=== PATIENT | female | born 1995 | race Caucasian/White ===

== ENCOUNTER 2020-06-17 22:30 | Inpatient (IN) | payer MEDICAID, SELFPAY ==
[2020-06-17 22:00] VITALS: RESP 18; TEMP 36.6
[2020-06-17 22:07] VITALS: TEMP 36.6
[2020-06-17 23:04] VITALS: BP 111/72; PULSE 92
[2020-06-17 23:34] VITALS: BP 118/81; PULSE 93
[2020-06-18] VITALS (51 sets, daily range): BP systolic 97–136; BP diastolic 60–87; PULSE 80–135; RESP 14–20; TEMP 36.3–37.4; O2SAT 98–100; BMI 25.9
[2020-06-18 00:07] LABS: Basophils % 0.1 %; Eosinophils # 0.1 10^3/uL (0.0-0.8); Eosinophils % 0.5 %; Hematocrit 28.4 % (37.0-47.0); Lymphocytes # 1.9 10^3/uL (0.8-4.8); Lymphocytes % 17.7 %; Mean Corpuscular HGB Conc 31.7 g/dL (30.0-36.0); Mean Corpuscular Hemoglobin 28.9 pg (28.0-34.0); Mean Corpuscular Volume 91.3 fL (81-99); Mean Platelet Volume 13.3 fL (7.4-10.4); Monocytes # 1.1 10^3/uL (0.2-0.9); Monocytes % 9.9 %; Neutrophils # 7.52 10^3/uL (1.8-7.7); Neutrophils % 71.2 %; Nucleated Red Blood Cells % 0 %; Platelet Count 152 10^3/cmm (130-400); Red Blood Count 3.11 10^6/uL (4.1-5.3); Red Cell Distribution Width 13.8 % (12.1-15.1); White Blood Count 10.6 10^3/uL (4.0-10.0)
[2020-06-18] MEDS: fentaNYL 50 mcg/mL INJ 2mL IVP ×3 (02:49→07:25)
[2020-06-18] MEDS: ondansetron 2 mg/ML SDV 2 mL 4 MG IVP (03:41)
[2020-06-18] MEDS: dextrose 5%-lactated ringers 1,000 ML 125 ML IV (03:42)
[2020-06-18] MEDS: oxytocin 30 UNIT/500 ML BAG IV (05:08)
[2020-06-18] MEDS: lactated ringers 1,000 ML 999 ML IV (07:21)
--- NOTE | 2020-06-18 08:58 | PM.DELIVERY ---
Delivery Note: Date of delivery: June 18, 2020 Pre-Delivery Course: The patient is a 24-year-old 2 female at 39 weeks estimated gestational age who presented to the hospital with spontaneous rupture of membranes. Her Covid status is unknown. She is GBS negative. Her glucose screen was within normal limits. Delivery: DELIVERY: The patient progressed to 7 cm, and I was contacted at that point. She then quickly progressed to complete and had spontaneous delivery of the infant prior to my arrival to the room. She delivered a female with a weight of 7 pounds 8 ounces with Apgars of 9, 9. The baby was delivered from the [place] position. The cord was then clamped and cut. There was no nuchal cord. There was no meconium. I delivered the placenta and 3 vessel cord were delivered intact shortly after arriving in the room.. The perineum and vaginal vault were carefully examined. A small anterior midline laceration was noted just superior to the urethra. No repair was necessary. Both the mother and the baby were in stable condition. A&P Assessment and plan (1) 39 weeks gestation of : Anticipate routine care. If all goes well she should be discharged tomorrow Status: Acute (2) Spontaneous vaginal delivery: Status: Acute Coding Level of Care Code Acute Technical Instructor Course Developer for Chg Fwd Diagnoses 39 weeks gestation of Z3A.39 Spontaneous vaginal delivery O80
[2020-06-18] MEDS: docusate sodium 100 mg Capsule PO ×2 (12:33→18:07)
[2020-06-18] MEDS: ibuprofen 800 mg tablet PO ×2 (12:33→18:07)
[2020-06-18] MEDS: benzocaine-menthol 78 gm Canister 1 SPRAY TOPICAL (12:34)
[2020-06-18] MEDS: prenatal vitamin Capsule 1 CAP PO (12:34)
[2020-06-18] MEDS: lanolin oint 7 gm 1 APPLIC TOPICAL (12:34)
--- NOTE | 2020-06-18 12:49 | PC.NURSE ---
This nurse received report from Neeta Watts RN. This nurse entered pt room at 0715, pt had grimace on her face and was obviously in pain. Her fluid bolus was almost complete, there was only about 100 mL left in the bag. Pitocin was running at 7miliunits/hr. Anesthesia had not been notified by prior shift that pt was ready for epidural, so this nurse notified Shannon Medina CRNA at 0717 that pt was ready for her epidural. At 0719 a new bag of LR was hung and set to bolus. This nurse performed SVE and pt was 7cm, 75%, and -1 station. This nurse offered pt Fentanyl for pain, pt accepted. At 0725 this nurse pushed 25 mcg of Fentanyl to make pt more comfortable while she waited for anesthesia to arrive. At 0743 pt reported she felt like she had to push . This nurse performed SCE and it was the same as previous exam 7cm, 75%, -1 station. This nurse educated pt to not push and to take deep breaths. This nurse notified Dr. Rosen at 0743 and reported that pt was currently awaiting anesthesia to arrive to place her epidural and pt was 7cm and was feeling like she needed to push. Dr. Rosen reported that he was going to get ready and that he would be leaving his house in 10-15 minutes, but to call sooner if anything changed. At 0751 anesthesia arrived and was at bedside when pt stated, She's coming, I can feel her. This nurse performed SVE and pt was complete and 0 station. This nurse yelled for help and to call Dr. Rosen. Dr. Rosen was notified at 0752 by Renetta Shay RN that pt was complete. Dr. Rosen reported he was about 10 minutes away. This nurse stopped pitocin at 0753 and educated pt to breathe and to not push. At 0757 pt was . At 0800, infants head was delivered face down, this nurse checked for a nuchal cord and then instructed pt to push and was delivered at 0801. No nuchal cord noted. THe was dried and bulb suctioned and then placed skin to skin with the mother. At 0803 the cord was clamped by Reyna Jamison RN and the cord was cut by the father of the baby. Dr. Rosen was notified at 0801 that infant was born. Dr. Rosen arrived to delivery room at 0810 and delivered placenta at 0812. Pitocin bolus was started at 0812.
[2020-06-18 21:16] LABS: Hematocrit 24.2 % (37.0-47.0); Hemoglobin 7.7 g/dL (11.5-15.3); Mean Corpuscular HGB Conc 31.8 g/dL (30.0-36.0); Mean Corpuscular Hemoglobin 29.5 pg (28.0-34.0); Mean Corpuscular Volume 92.7 fL (81-99); Mean Platelet Volume 13.7 fL (7.4-10.4); Platelet Count 157 10^3/cmm (130-400); Red Blood Count 2.61 10^6/uL (4.1-5.3); Red Cell Distribution Width 13.7 % (12.1-15.1); White Blood Count 15.1 10^3/uL (4.0-10.0)
[2020-06-19 02:01] VITALS: BP 105/75; PULSE 90; TEMP 36.2
--- NOTE | 2020-06-19 06:41 | PM.OBGYDC ---
Discharge Providers FINISHING AND SHIPPING SUPERVISOR Date of Admission: 06/17/20 22:30 Date of Discharge: 06/19/20 Attending Provider at Admission: Rogelio Rosen MD Attending Provider at Discharge: Rogelio Rosen MD Primary Care Provider: JESSY Lopez Diagnoses at Discharge Discharge Diagnosis (1) 39 weeks gestation of : Status: Acute (2) Spontaneous vaginal delivery: Status: Acute (3) Depression affecting : Status: Acute Reason for Visit Reason for Visit: Possible ROM Hospital Course Hospital Course The patient is a 24-year-old 2 who presented to the hospital at 39 weeks estimated gestational age with spontaneous rupture of membranes. Her contractions began to space out, and her labor was augmented with Pitocin. She gradually progressed to complete. She went from 7 cm to delivery in less than 30 minutes. There are no complications. Both she and her are healthy and doing well. The patient's hemoglobin dropped from 9-7.7 during her hospital stay. Her bleeding was within normal limits. Information Peripartum Data: Infant Delivery Method: Vaginal Physical Exam Narrative: EXAM NARRATIVE: The patient is alert. She appears comfortable. Her heart has a regular rate and rhythm with no murmurs appreciated. Lungs are clear to auscultation bilaterally. Her fundus is firm and below the umbilicus. Discharge Data Data Completed and Pending: Pending at discharge Category Date Time Status Complete Crossmat ch Routine Lab 06/17/20 22:30 Results Rho D Immune Glob ulin Routine Lab 06/17/20 22:30 Results Type and Screen R outine Lab 06/17/20 22:30 Results Labs from last 24 hours 06/18/20 06/18/20 06/17/20 20:58 20:58 22:30 WBC 15.1 H RBC 2.61 L Hgb 7.7 L Hct 24.2 L MCV 92.7 MCH 29.5 MCHC 31.8 RDW 13.7 Plt Count 157 MPV 13.7 H Blood Type A Negative Rho(D) Type Negative Antibody Screen Negative Screen Negative Vitals: Last Vital Signs Temp 97.2 F L 06/19/20 02:01 Pulse 90 06/19/20 02:01 Resp 16 06/18/20 22:10 BP 105/75 06/19/20 02:01 Pulse Ox 100 06/18/20 18:09 Discharge Plan Discharge Patient Disposition: Home Condition: Stable Prescriptions: New ibuprofen 800 mg Tablet 800 mg PO TID Qty: 45 RF: 0 Continued Vitamin C 1,000 mg Tablet 1 g PO DAILY RF: 0 Iron (ferrous sulfate) 325 mg (65 mg iron) Tablet 325 mg PO DAILY RF: 0 Zoloft 50 mg Tablet 50 mg PO DAILY RF: 0 Discharge Orders: Discharge Order (Routine); Ordered 06/19/20 Ordered By: Rogelio Rosen Referrals: Rogelio Rosen MD [Physician] - 6 Weeks Discharge Diet: Regular Discharge Activity: Limit activity as instructed Discharge Attestations FINISHING AND SHIPPING SUPERVISOR Time Spent in Discharge Care*: less than 30 min Coding Level of Care Code Acute Flavor Tank Tender for Chg Fwd Diagnoses 39 weeks gestation of Z3A.39 Spontaneous vaginal delivery O80 Depression affecting O99.340; F32.9
[2020-06-19 06:44] VITALS: BP 109/68; PULSE 88; TEMP 36.6
[2020-06-19] MEDS: ibuprofen 800 mg tablet PO (06:47)
[2020-06-19 06:50] VITALS: BP 109/68; PULSE 88; RESP 16; TEMP 36.6
== END 2020-06-19 11:10 | disposition home or self-care (01) | DRG 806 ==
PROVIDERS: Admitting Provider Family Medicine; Family Provider Pediatrics; PCP Nurse Practitioner Family; Visit Provider Family Medicine
DX: O99.344 Other mental disorders complicating childbirth (principal); O36.0930 Maternal care for other rhesus isoimmunization, third trimester, not applicable or unspecified; Z37.0 Single live birth; F32.9 Major depressive disorder, single episode, unspecified; O99.02 Anemia complicating childbirth; D64.9 Anemia, unspecified; Z3A.39 39 weeks gestation of pregnancy
CPT/HCPCS: 12345; 36415; 59025; 59409; 83986; 85025; 85027; 85460; 86850; 86900; 90384; 96374; 96375; 99211; J2405; J3010

== ENCOUNTER → 2021-09-12 11:28 | Outpatient (BNVA) | payer MEDICAID, SELFPAY | PROVIDERS: Family Provider Pediatrics; PCP Nurse Practitioner Family; Visit Provider Nurse Practitioner Family | DX: J02.9 Acute pharyngitis, unspecified (principal); J02.0 Streptococcal pharyngitis; F41.9 Anxiety disorder, unspecified; F32.A Depression, unspecified | CPT/HCPCS: 87880 ==

== ENCOUNTER → 2022-01-21 11:43 | Outpatient (BNVA) | payer MEDICAID, SELFPAY | PROVIDERS: Family Provider Pediatrics; PCP Nurse Practitioner Family; Visit Provider Nurse Practitioner Family | DX: E16.2 Hypoglycemia, unspecified (principal); R11.0 Nausea | CPT/HCPCS: 80053; 84443; 85025 ==

== ENCOUNTER 2022-03-21 09:32 | Emergency (ER) | payer MEDICAID, SELFPAY ==
[2022-03-21 09:37] VITALS: BP 155/89; PULSE 92; RESP 18; TEMP 36.8; O2SAT 100; BMI 22.4
--- NOTE | 2022-03-21 09:49 | PC.NURSE ---
c/o LLQ abdominal pain for a week. Worse with standing straight, bending, and coughing. Denies nausea, vomiting, diarrhea, or complaints. Reports normal BM. LMP 6 weeks ago, hx irregular periods
[2022-03-21 10:12] LABS: Basophils % 0.4 %; Eosinophils # 0.1 10^3/uL (0.0-0.8); Eosinophils % 0.8 %; Hematocrit 39.4 % (37.0-47.0); Hemoglobin 12.9 g/dL (11.5-15.3); Lymphocytes # 2.2 10^3/uL (0.8-4.8); Lymphocytes % 21.3 %; Mean Corpuscular HGB Conc 32.7 g/dL (30.0-36.0); Mean Corpuscular Hemoglobin 29.9 pg (28.0-34.0); Mean Corpuscular Volume 91.4 fl (81-99); Mean Platelet Volume 12.1 fL (7.4-10.4); Monocytes # 0.7 10^3/uL (0.2-0.9); Monocytes % 6.6 %; Neutrophils # 7.41 10^3/uL (1.8-7.7); Neutrophils % 70.7 %; Nucleated Red Blood Cells % 0 %; Platelet Count 214 10^3/cmm (130-400); Red Blood Count 4.31 10^6/uL (4.1-5.3); White Blood Count 10.5 10^3/uL (4.0-10.0)
[2022-03-21 10:28] LABS: Alanine Aminotransferase 30 U/L (0-33); Albumin Level 4.7 g/dL (3.5-5.2); Alkaline Phosphatase 68 U/L (35-105); Anion Gap 12.7 (5-19); Aspartate Amino Transferase 36 U/L (0-32); Blood Urea Nitrogen 12 mg/dL (6-20); Calcium 9.1 mg/dL (8.5-10.5); Carbon Dioxide 27 mmol/L (22-29); Chloride 100 mmol/L (98-107); Creatinine Clr Calc Pharmacy 129.3442; Globulin 2.6 g/dL (1.3-4.6); Glucose 123 mg/dL (65-115); Osmolality Calculated 283 mOsm/kg (285-295); Potassium 3.7 mmol/L (3.5-5.1); Sodium 136 mmol/L (136-145); Total Bilirubin 0.4 mg/dL (0.15-1.2); Total Protein 7.3 g/dL (6.6-8.7)
--- NOTE | 2022-03-21 10:28 | US_ITS ---
WS: [id number] ULTRASOUND PELVIS TECHNIQUE: Transvaginal. CLINICAL INFORMATION: L pelvic pain LMP: ? : ? FINDINGS: Uterus Orientation: Anteverted. Size: 9.2 x 3.4 x 5.9 cm Masses: None. Cervix: Normal. Endometrium: Normal. Endometrium thickness: 9.1 mm. Adnexa: Complex lesion RIGHT ovary measuring 2.0 x 1.0 x 1.7 cm indeterminant but may represent invol uting hemorrhagic cyst. Associated peripheral vascularity. Right ovary size: 2.4 x 2.7 cm. Left ovary size: 3.6 x 1.7 x 1.9 cm. Free fluid: Small amount of free fluid in the cul-de-sac. Other findings: None. US/US transvaginal [id number] IMPRESSION: 1. Normal vascularity to both ovaries. No evidence of torsion. 2. Small amount of free fluid in the cul-de-sac. 3. Normal uterus with endometrium measuring 9.1 mm. 4. Complex lesion RIGHT ovary measuring 2.0 x 1.0 1.7 cm indeterminant but may represent involuting hemorrhagic cyst.
--- NOTE | 2022-03-21 10:34 | W.ED.ABDPA2 ---
HPI - Abdominal Pain General: Chief Complaint: Abdominal Pain Stated Complaint: Abd pains Time Seen by Provider: 03/21/22 09:45 Source: patient Mode of arrival: ambulatory History of Present Illness: 26-year-old female presents to the emergency room with complaints of abdominal pain she localizes the pain to the left lower quadrant for the last couple of days. She denies any fever sweats chills nausea vomiting or diarrhea. No hematochezia melena hematemesis coffee-ground emesis. She has had problems ovarian cyst in the past. Last menstrual period was approximately 6 weeks ago. No dysuria urgency or frequency or hematuria. She does not know anything that exacerbates or relieves the discomfort. She has a history of ovarian cysts with pelvic discomfort in the past. States her periods are always irregular and 6 weeks between menses has not been abnormal for her in the past. MD elicited complaint: abdominal pain (Left lower quadrant left pelvic) Pertinent past history: other Onset (ago): day(s) (2-3) Pain Consistency: constant Location: LLQ Severity: moderate Quality: cramping Radiation: none Exacerbating factors: nothing Relieving factors: nothing Associated Symptoms: Reports GI cramping and nausea; Denies anorexia, belching, bloating, change in bowel habits, change in stool character, chills, coffee ground emesis, constipation, diarrhea, dyspepsia, dysuria, excessive flatus, fever(s), heartburn, hematochezia, hematuria, hematemesis, fecal incontinence, loose stools, melena, poor appetite, syncope and vomiting Related Data: Date of Last Menstrual Period: 02/16/22 Review of Systems Const: Denies: fever(s), chills, fatigue or malaise ENMT: Denies: throat pain, ear or mastoid pain, nasal discharge or nasal congestion Card: Denies: syncope Resp: Denies: dyspnea, productive cough or non-productive cough GI: Reports: abdominal pain, nausea and GI cramping; Denies: vomiting, hematemesis, coffee ground emesis, heartburn, diarrhea, constipation, bloating, belching, excessive flatus, fecal incontinence, change in bowel habits, change in stool character, hematochezia or melena : Denies: dysuria or hematuria Skin/Breast: Denies: rash or pruritus PFSH ED PFSH: Surgical History No significant past surgical history Social History Smoking and tobacco status: never smoked Second hand smoke exposure: No Smoking risk assessment/counseling performed?: No Alcohol intake: never Desire information about alcohol rehabilitation?: No Counseling given: No Desire information about substance/drug rehabilitation?: No Counseling given: No Adopted: Yes Caregiver/support person: No Lives independently: Yes Female Reproductive History: Date of last menstrual period: 02/16/22 Physical Exam Const: COMMON NORMALS: no acute distress GENERAL APPEARANCE: cooperative and comfortable ORIENTATION/CONSCIOUSNESS: Yes awake, Yes oriented to person, Yes oriented to place and Yes oriented to time HENMT: COMMON NORMALS: normocephalic, atraumatic, hearing grossly normal bilaterally, external ears normal, EAC's normal, TM's normal bilaterally, Normal nasal mucous membranes and turbinates present, moist oral mucous membranes and oropharynx normal HEAD & SCALP: normocephalic and atraumatic NOSE: Normal nasal mucous membranes and turbinates present EXTERNAL EAR: Yes external ears normal EXTERNAL AUDITORY CANAL: EAC's normal TYMPANIC MEMBRANE: TM's normal bilaterally Eye: COMMON NORMALS: Equal, round and reactive pupils present, EOMs intact bilaterally, conjunctivae normal and no scleral icterus CONJUNCTIVA: Yes conjunctivae normal PUPIL: Yes Equal, round and reactive pupils present Neck/C-Spine: COMMON NORMALS: full ROM, no lymphadenopathy, supple and no JVD Lymph: LYMPHATIC: no lymphadenopathy noted and no lymphedema noted Resp: COMMON NORMALS: normal respiratory effort, No retractions, No use of accessory muscles and clear to auscultation bilaterally AUSCULTATION: clear to auscultation bilaterally Cardio: COMMON NORMALS: no JVD, regular rate, regular rhythm and No murmurs present (Cardio) RATE: regular rate RHYTHM: regular rhythm GI: COMMON NORMALS: Soft to palpation and No hepatosplenomegaly present AUSCULTATION: Yes normoactive bowel sounds PALPATION: Yes Soft to palpation, No Tenderness to palpation present (GI), No Guarding due to palpation present (GI) and Yes No hepatosplenomegaly present Extremity: COMMON NORMALS: normal to inspection, capillary refill normal, no clubbing, cyanosis or edema, no calf tenderness and no pedal edema Neuro: SENSORIUM/ORIENTATION: Yes oriented to person, Yes oriented to place and Yes oriented to time Skin: COMMON NORMALS: no rashes or lesions noted GENERAL SKIN EXAM: no rashes or lesions noted Course Vital Signs: Vital signs: Vital Signs Temperature 98.2 F 03/21/22 09:37 Pulse Rate 95 03/21/22 13:54 Respiratory Rate 16 03/21/22 13:54 Blood Pressure 126/82 03/21/22 13:54 Pulse Oximetry 98 03/21/22 13:54 Oxygen Delivery Me thod 03/21/22 09:37 MDM - Abdominal Pain Medical Decision Making Small amount of fluid in the cul-de-sac along with a ovarian cyst treat with anti-inflammatories follow-up with primary care if not improving Medical Records I reviewed the patient's medical records. Lab Data I reviewed the patient's lab results. : 03/21/22 09:54 03/21/22 09:54 Labs/Radiology: Radiology Impressions Transvaginal US 03/21/22 10:28 IMPRESSION: 1. Normal vascularity to both ovaries. No evidence of torsion. 2. Small amount of free fluid in the cul-de-sac. 3. Normal uterus with endometrium measuring 9.1 mm. 4. Complex lesion RIGHT ovary measuring 2.0 x 1.0 1.7 cm indeterminant but may represent involuting hemorrhagic cyst. Laboratory Results WBC 10.5 10^3/uL (4.0-10.0) H 03/21/22 09:54 RBC 4.31 10^6/uL (4.1-5.3) 03/21/22 09:54 Hgb 12.9 g/dL (11.5-15.3) 03/21/22 09:54 Hct 39.4 % (37.0-47.0) 03/21/22 09:54 MCV 91.4 fl (81-99) 03/21/22 09:54 MCH 29.9 pg (28.0-34.0) 03/21/22 09:54 MCHC 32.7 g/dL (30.0-36.0) 03/21/22 09:54 RDW 13.0 % (12.1-15.1) 03/21/22 09:54 Plt Count 214 10^3/cmm (130-400) 03/21/22 09:54 MPV 12.1 fL (7.4-10.4) H 03/21/22 09:54 Neut % (Auto) 70.7 % 03/21/22 09:54 Lymph % (Auto) 21.3 % 03/21/22 09:54 [place] % (Auto) 6.6 % 03/21/22 09:54 Eos % (Auto) 0.8 % 03/21/22 09:54 Baso % (Auto) 0.4 % 03/21/22 09:54 Neut # (Auto) 7.41 10^3/uL (1.8-7.7) 03/21/22 09:54 Lymph # (Auto) 2.2 10^3/uL (0.8-4.8) 03/21/22 09:54 [place] # (Auto) 0.7 10^3/uL (0.2-0.9) 03/21/22 09:54 Eos # (Auto) 0.1 10^3/uL (0.0-0.8) 03/21/22 09:54 Baso # (Auto) 0.0 10^3/uL (0.0-0.1) 03/21/22 09:54 Nucleated RBC % (auto) 0 % 03/21/22 09:54 Nucleated RBCs # 0.0 /100WBC 03/21/22 09:54 Sodium 136 mmol/L (136-145) 03/21/22 09:54 Potassium 3.7 mmol/L (3.5-5.1) 03/21/22 09:54 Chloride 100 mmol/L (98-107) 03/21/22 09:54 Carbon Dioxide 27 mmol/L (22-29) 03/21/22 09:54 Anion Gap 12.7 (5-19) 03/21/22 09:54 BUN 12 mg/dL (6-20) 03/21/22 09:54 Creatinine 0.6 mg/dL (0.5-0.9) 03/21/22 09:54 GFR Calculation 119.0 mL/min (90-130) 03/21/22 09:54 Glucose 123 mg/dL (65-115) H 03/21/22 09:54 Calculated Osmolality 283 mOsm/kg (285-295) L 10/06/22 09:54 Calcium 9.1 mg/dL (8.5-10.5) 03/21/22 09:54 Total Bilirubin 0.4 mg/dL (0.15-1.2) 03/21/22 09:54 AST 36 U/L (0-32) H 03/21/22 09:54 ALT 30 U/L (0-33) 03/21/22 09:54 Alkaline Phosphatase 68 U/L (35-105) 03/21/22 09:54 Total Protein 7.3 g/dL (6.6-8.7) 03/21/22 09:54 Albumin 4.7 g/dL (3.5-5.2) 03/21/22 09:54 Globulin 2.6 g/dL (1.3-4.6) 03/21/22 09:54 HCG, Qual Negative (Negative) 03/21/22 09:54 Urine Color Yellow (Yellow) 03/21/22 09:54 Urine Appearance Clear (CLEAR) 03/21/22 09:54 Urine pH 6.5 (5-7) 03/21/22 09:54 Ur Specific [place] 1.015 (1.005-1.030) 03/21/22 09:54 Urine Protein Neg (Negative) 03/21/22 09:54 Urine Glucose (UA) Norm (Normal) 03/21/22 09:54 Urine Ketones Negative (Negative) 03/21/22 09:54 Urine Blood Neg (Negative) 03/21/22 09:54 Urine Nitrate Negative (Negative) 03/21/22 09:54 Urine Bilirubin Neg (Negative) 03/21/22 09:54 Urine Urobilinogen Neg mg/dL (Negative) 03/21/22 09:54 Ur Leukocyte Esterase 1+ (Negative) H 03/21/22 09:54 Urine RBC None /hpf (0-2) 03/21/22 09:54 Urine WBC 0-4 /hpf (0-5) H 03/21/22 09:54 Ur Squamous Epith Cells 5-10 /hpf (0-5) H 03/21/22 09:54 Amorphous Sediment Not Reportable 03/21/22 09:54 Urine Bacteria None /hpf (NONE) 03/21/22 09:54 Urine Mucus 1+ /hpf 03/21/22 09:54 Discharge Plan Discharge Patient Disposition: Home Clinical Impression: Ovarian cyst Condition: Stable Prescriptions: New diclofenac sodium 75 mg tablet,delayed release (DR/EC) 75 mg PO Q12H PRN (Reason: pain) Qty: 20 0RF Discharge Orders: Discharge ED (Routine); Ordered 03/21/22 Ordered By: Adin Perez Referrals: Capri Watts FNP-C [Primary Care Provider] - Discharge Diet: Usual diet Discharge Activity: Increase activity as tolerated Patient Instructions: Opioid Safety, Pain Management Activity Restrictions/Additional Instructions: Follow-up with Dr. Rosen. It is advisable for you to have a repeat ultrasound sometime in the next 1 to 2 months. Coding Level of Care Code ED Aqueduct And Reservoir Keeper for Celio Guardado
[2022-03-21 10:36] VITALS: BP 123/92; PULSE 86; O2SAT 100
[2022-03-21 10:45] LABS: HCG Qualitative Urine. Negative (Negative)
[2022-03-21 10:53] LABS: Specific Gravity, Urine 1.015 (1.005-1.030); Urine Appearance Clear (CLEAR); Urine Color Yellow (Yellow); pH Urine 6.5 (5-7)
[2022-03-21 10:54] LABS: Add Urine Microscopic? YES; Bilirubin Urine Neg (Negative); Blood Urine Neg (Negative); Glucose Urine UA Norm (Normal); Ketones Urine Negative (Negative); Leukocyte Esterase Urine 1+ (Negative); Nitrate Urine Negative (Negative); Protein Urine Neg (Negative); Urobilinogen Urine Neg (Negative)
[2022-03-21 10:55] LABS: WBC Urine 0-4 /hpf (0-5)
[2022-03-21 10:56] LABS: Add Urine Culture? No; Mucus Urine 1+ /hpf
[2022-03-21] MEDS: ketorolac 30 mg/mL INJ IVP (12:19)
--- NOTE | 2022-03-21 12:29 | PC.PHAR ---
PT STATES SHE TAKES NO RX OR OTC MEDICATIONS
[2022-03-21 12:53] VITALS: BP 125/93; PULSE 89; RESP 16; O2SAT 99
--- NOTE | 2022-03-21 12:53 | PC.NURSE ---
pt reports improvement of pain
[2022-03-21 13:54] VITALS: BP 126/82; PULSE 95; RESP 16; O2SAT 98
== END 2022-03-21 13:55 | disposition home or self-care (01) ==
PROVIDERS: Emergency Provider Family Medicine; PCP Nurse Practitioner Family
DX: N83.201 Unspecified ovarian cyst, right side (principal)
CPT/HCPCS: 76830; 80053; 81001; 81025; 85025; 96374; 99285; J1885

== ENCOUNTER → 2022-05-20 09:40 | Outpatient (BNVA) | payer MEDICAID, SELFPAY | PROVIDERS: PCP Nurse Practitioner Family; Visit Provider Nurse Practitioner Family | DX: R59.1 Generalized enlarged lymph nodes (principal); R51.9 Headache, unspecified | CPT/HCPCS: 85025 ==

== ENCOUNTER 2022-06-24 18:24 | Emergency (ER) | payer MEDICAID, SELFPAY ==
[2022-06-24 18:27] VITALS: BP 154/95; PULSE 98; RESP 14; TEMP 36.7; O2SAT 100
--- NOTE | 2022-06-24 18:43 | USR_ITS ---
PROCEDURE INFORMATION: Exam: US Nonobstetric Pelvis; Complete Exam date and time: 06/24/2022 7:04 PM Age: 26 years old Clinical indication: Patient HX: RT pelvic pain x 24 hours; Additional info: Pelvic pain, HX of ovarian cysts TECHNIQUE: Imaging protocol: Transabdominal pelvic nonobstetric ultrasound. Complete exam. Real time ultrasound with image documentation. COMPARISON: US transvaginal [id number] 03/21/2022 11:23 AM FINDINGS: Uterus: Uterus is normal. Endometrial stripe is normal. No evidence of intrauterine gestation or ectopic . Right ovary/adnexa: Ovary is normal. No mass. Normal blood flow. Left ovary/adnexa: Ovary is normal. No mass. Normal blood flow. Intraperitoneal space: Trace free fluid noted in the cul-de-sac, likely physiologic. Urinary bladder: Normal. US/US pelvic with transvaginal IMPRESSION: No acute findings.
--- NOTE | 2022-06-24 18:43 | ED_ITS ---
HPI - Female Genitourinary General: Chief complaint: Urogenital-Female Stated complaint: complications from a cyst Time Seen by Provider: 06/24/22 18:33 Source: patient Mode of arrival: ambulatory Limitations: no limitations History of Present Illness: Patient is a 26-year-old female presents to ED today with complaint of right-sided pelvic pain. Patient states she has a history of ovarian cysts. She states pain began a few days ago during intercourse. She saw her PCP/COMPENSATION SUPERVISOR Dr. Rosen on who did a pelvic exam. She states they did do pelvic swab/STD testing and she has results of these on her phone which were negative. She states they also did a UA which was negative. She is not complaining of vaginal discharge or any vaginal odor. She is not having any vaginal bleeding. She denies nausea, vomiting, diarrhea. She states her pain today feels similar to previous ovarian cysts. MD elicited complaint: pelvic pain Pertinent past history: other (ovarian cyst) Onset (ago): day(s) Severity: moderate Quality of pain: sharp Consistency: constant Vaginal discharge: none Vaginal bleeding: none Associated symptoms: Deny abdominal pain, headache(s), nausea or vaginal discharge Treatment prior to arrival: none Sexual activity: Yes Patient : No Date of Last Menstrual Period: 02/16/22 Review of Systems Const: Denies: fever(s), chills, body aches, fatigue or malaise Card: Denies: chest pain Resp: Denies: dyspnea GI: Denies: abdominal pain, nausea, vomiting, diarrhea or change in bowel habits : Reports: pelvic pain; Denies: flank pain, difficulty voiding, dysuria, urinary frequency, urinary urgency, urinary hesitancy, oliguria, hematuria, genital pruritis, vaginal odor, vaginal bleeding or vaginal discharge Musc: Denies: neck pain, back pain, extremity pain or joint pain Skin/Breast: Denies: rash Neuro: Denies: headache(s), numbness in extremities, weakness in extremities or sensory changes PFS ED PFSH: Surgical History No significant past surgical history Social History Smoking and tobacco status: never smoked Second hand smoke exposure: No Smoking risk assessment/counseling performed?: No Alcohol intake: never Desire information about alcohol rehabilitation?: No Counseling given: No Desire information about substance/drug rehabilitation?: No Counseling given: No Adopted: Yes Caregiver/support person: No Lives independently: Yes Female Reproductive History: Date of last menstrual period: 02/16/22 Physical Exam Const: COMMON NORMALS: average body habitus, patient oriented x3, no limitations, healthy appearing, alert and well nourished GENERAL APPEARANCE: cooperative and in distress (appears uncomfortable) Resp: COMMON NORMALS: normal respiratory effort and clear to auscultation bilaterally AUSCULTATION: clear to auscultation bilaterally Cardio: COMMON NORMALS: regular rate and regular rhythm RATE: regular rate RHYTHM: regular rhythm GI: COMMON NORMALS: Normal to inspection, nondistended, normoactive bowel sounds present, Soft to palpation, No hepatosplenomegaly present and no masses INSPECTION: Yes normal to inspection AUSCULTATION: Yes normoactive bowel sounds PALPATION: Yes Soft to palpation, Yes Tenderness to palpation present (GI) (R lower pelvis; no abdominal/McBurney's point tenderness ), No Guarding due to palpation present (GI), No Rigid due to palpation and Yes No hepatosplenomegaly present : COMMON NORMALS: Yes no CVA tenderness BLADDER/KIDNEY EXAM: Yes no CVA tenderness OTHER: pelvic exam deferred as she just had one completed by her PCP/COMPENSATION SUPERVISOR Dr. Rosen 3 days ago Back/Pelvis: COMMON NORMALS: no CVA tenderness Extremity: COMMON NORMALS: normal to inspection GENERAL: Yes normal exam except as noted Neuro: COMMON NORMALS: patient oriented x3 SENSORIUM/ORIENTATION: Yes alert Course Vital Signs: Vital signs: Vital Signs Temperature 98.0 F 06/24/22 18:27 Pulse Rate 98 06/24/22 18:27 Respiratory Rate 16 06/24/22 18:55 Blood Pressure 154/95 06/24/22 18:27 Pulse Oximetry 100 06/24/22 18:27 Oxygen Delivery Me thod 06/24/22 18:27 MDM - Female Medical Decision Making Patient here for right-sided pelvic pain that began abruptly during intercourse. She has a history of ovarian cysts and states her pain feels very similar. Ultrasound however did not visualize an ovarian cyst. Her vital signs are stable. Blood work is non-concerning. is negative. I do not see any benefit in repeating a pelvic exam as this was just completed 3 days ago by her PCP/COMPENSATION SUPERVISOR. She does not have any abdominal tenderness and I have no concern for intra-abdominal surgical process. Recommend she follow-up with Dr. Rosen this week if pain persists. She states she does have leftover prescription medi cation that she used with previous cysts that she can use for discomfort if needed. Strict return ED precautions given. Lab Data 06/24/22 19:02 06/24/22 19:02 Radiology Impressions Pelvic/Transvag US 06/24/22 18:43 IMPRESSION: No acute findings. Laboratory Results WBC 7.3 10^3/uL (4.0-10.0) 06/24/22 19: RBC 4.28 10^6/uL (4.1-5.3) 06/24/22 19:02 Hgb 13.0 g/dL (11.5-15.3) 06/24/22 19:02 Hct 39.7 % (37.0-47.0) 06/24/22 19:02 MCV 92.8 fl (81-99) 06/24/22 19:02 MCH 30.4 pg (28.0-34.0) 06/24/22 19:02 MCHC 32.7 g/dL (30.0-36.0) 06/24/22 19:02 RDW 13.2 % (12.1-15.1) 06/24/22 19:02 Plt Count 194 10^3/cmm (130-400) 06/24/22 19:02 MPV 12.8 fL (7.4-10.4) H 06/24/22 19:02 Neut % (Auto) 54.6 % 06/24/22 19:02 Lymph % (Auto) 34.3 % 06/24/22 19:02 [place] % (Auto) 8.3 % 06/24/22 19:02 Eos % (Auto) 1.9 % 06/24/22 19:02 Baso % (Auto) 0.6 % 06/24/22 19:02 Neut # (Auto) 3.97 10^3/uL (1.8-7.7) 06/24/22 19:02 Lymph # (Auto) 2.5 10^3/uL (0.8-4.8) 06/24/22 19:02 [place] # (Auto) 0.6 10^3/uL (0.2-0.9) 06/24/22 19:02 Eos # (Auto) 0.1 10^3/uL (0.0-0.8) 06/24/22 19:02 Baso # (Auto) 0.0 10^3/uL (0.0-0.1) 06/24/22 19:02 Nucleated RBC % (auto) 0 % 06/24/22 19:02 Nucleated RBCs # 0.0 /100WBC 06/24/22 19:02 Sodium 138 mmol/L (136-145) 06/24/22 19:02 Potassium 4.0 mmol/L (3.5-5.1) 06/24/22 19:02 Chloride 101 mmol/L (98-107) 06/24/22 19:02 Carbon Dioxide 26 mmol/L (22-29) 06/24/22 19:02 Anion Gap 15.0 (5-19) 06/24/22 19:02 BUN 16 mg/dL (6-20) 06/24/22 19:02 Creatinine 0.6 mg/dL (0.5-0.9) 06/24/22 19:02 GFR Calculation 119.0 mL/min (90-130) 06/24/22 19:02 Glucose 114 mg/dL (65-115) 06/24/22 19:02 Calculated Osmolality 288 mOsm/kg (285-295) 06/24/22 19:02 Calcium 9.7 mg/dL (8.5-10.5) 06/24/22 19:02 Total Bilirubin 0.2 mg/dL (0.15-1.2) 06/24/22 19:02 AST 18 U/L (0-32) 06/24/22 19:02 ALT 20 U/L (0-33) 06/24/22 19:02 Alkaline Phosphatase 81 U/L (35-105) 06/24/22 19:02 Total Protein 7.5 g/dL (6.6-8.7) 06/24/22 19:02 Albumin 4.6 g/dL (3.5-5.2) 06/24/22 19:02 Globulin 2.9 g/dL (1.3-4.6) 06/24/22 19:02 HCG, Qual Negative (Negative) 06/24/22 19:02 Discharge Plan Discharge Patient Disposition: Home Clinical Impression: Pelvic pain Condition: Stable Discharge Orders: Discharge ED (Routine); Ordered 06/24/22 Ordered By: Franca Stuart Referrals: Capri Watts FNP-C [Primary Care Provider] - Patient Instructions: Pelvic Pain (ED) Coding Level of Care Code ED Day Care Worker for Chg Fwd Exam Detailed
[2022-06-24 18:55] VITALS: RESP 16
[2022-06-24] MEDS: morphine 4 mg/mL SDV 1 mL IM (18:55)
[2022-06-24] MEDS: ondansetron 2 mg/ML SDV 2 mL 4 MG IM (18:57)
[2022-06-24 19:27] LABS: Basophils % 0.6 %; Eosinophils # 0.1 10^3/uL (0.0-0.8); Eosinophils % 1.9 %; Hematocrit 39.7 % (37.0-47.0); Lymphocytes # 2.5 10^3/uL (0.8-4.8); Lymphocytes % 34.3 %; Mean Corpuscular HGB Conc 32.7 g/dL (30.0-36.0); Mean Corpuscular Hemoglobin 30.4 pg (28.0-34.0); Mean Corpuscular Volume 92.8 fl (81-99); Mean Platelet Volume 12.8 fL (7.4-10.4); Monocytes # 0.6 10^3/uL (0.2-0.9); Monocytes % 8.3 %; Neutrophils # 3.97 10^3/uL (1.8-7.7); Neutrophils % 54.6 %; Nucleated Red Blood Cells % 0 %; Platelet Count 194 10^3/cmm (130-400); Red Blood Count 4.28 10^6/uL (4.1-5.3); Red Cell Distribution Width 13.2 % (12.1-15.1); White Blood Count 7.3 10^3/uL (4.0-10.0)
[2022-06-24 19:42] LABS: Alanine Aminotransferase 20 U/L (0-33); Albumin Level 4.6 g/dL (3.5-5.2); Alkaline Phosphatase 81 U/L (35-105); Aspartate Amino Transferase 18 U/L (0-32); Blood Urea Nitrogen 16 mg/dL (6-20); Calcium 9.7 mg/dL (8.5-10.5); Carbon Dioxide 26 mmol/L (22-29); Chloride 101 mmol/L (98-107); Globulin 2.9 g/dL (1.3-4.6); Glucose 114 mg/dL (65-115); Osmolality Calculated 288 mOsm/kg (285-295); Sodium 138 mmol/L (136-145); Total Bilirubin 0.2 mg/dL (0.15-1.2); Total Protein 7.5 g/dL (6.6-8.7)
[2022-06-24 19:50] LABS: HCG, Serum Qual Negative (Negative)
[2022-06-24 20:33] VITALS: BP 153/106; PULSE 81; RESP 16; O2SAT 100
== END 2022-06-24 20:34 | disposition home or self-care (01) ==
PROVIDERS: Emergency Provider Physician Assistant; PCP Nurse Practitioner Family
DX: R10.2 Pelvic and perineal pain (principal)
CPT/HCPCS: 76830; 76856; 80053; 84703; 85025; 99285; J2270; J2405

== ENCOUNTER → 2022-07-01 16:12 | Outpatient (BNVA) | payer MEDICAID, SELFPAY | PROVIDERS: PCP Nurse Practitioner Family; Visit Provider Nurse Practitioner Family | DX: J02.9 Acute pharyngitis, unspecified (principal) | CPT/HCPCS: 87880 ==

== ENCOUNTER 2022-10-27 17:03 | Emergency (ER) | payer SELFPAY ==
--- NOTE | 2022-10-27 17:04 | XRR_ITS ---
PROCEDURE INFORMATION: Exam: XR Right Hand Exam date and time: 10/27/2022 5:15 PM Age: 27 years old Clinical indication: Pain; Hand; Right; Additional info: Injury TECHNIQUE: Imaging protocol: Radiologic exam of the right hand. Views: 3 or more views. COMPARISON: No relevant prior studies available. FINDINGS: Bones/joints: Fifth metacarpal distal metaphyseal impacted mildly displaced and angulated fracture. Soft tissues: Normal. XR/XR hand RT min 3V* [id number] IMPRESSION: Fifth metacarpal distal metaphyseal impacted mildly displaced and angulated fracture.
[2022-10-27 17:08] VITALS: BP 158/106; PULSE 90; TEMP 36.7; O2SAT 100; BMI 25.8
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
--- NOTE | 2022-10-28 09:37 | DCPLANNER ---
Addendum entered by Arcelia Victoria 11/01/22 10:37: Patient had a follow up appointment scheduled with ortho - patient did attend appointment Addendum entered by Arcelia Victoria 10/30/22 10:55: Patient has a follow up appointment scheduled for , October 31, 2022 at 11:[address] Esposito at ortho. Original Note: health information managers had message to schedule a follow up appointment for patient with ortho. health information managers sent patients information to the front office staff at ortho. Patients information will be printed and reviewed. Clinic will call patient with appointment information.
== END 2022-10-27 17:41 | disposition home or self-care (01) ==
PROVIDERS: Emergency Provider Emergency Medicine; PCP Nurse Practitioner Family
DX: S62.336A Displaced fracture of neck of fifth metacarpal bone, right hand, initial encounter for closed fracture (principal); Y04.2XXA Assault by strike against or bumped into by another person, initial encounter
CPT/HCPCS: 29125; 73130; 99283

== ENCOUNTER → 2022-10-31 11:52 | Outpatient (BNVA) | payer SELFPAY | PROVIDERS: PCP Nurse Practitioner Family; Visit Provider Specialist | DX: S62.336A Displaced fracture of neck of fifth metacarpal bone, right hand, initial encounter for closed fracture (principal); Y04.2XXA Assault by strike against or bumped into by another person, initial encounter | CPT/HCPCS: 73130 ==

== ENCOUNTER 2022-10-31 14:11 | Outpatient (CLI) | payer SELFPAY | END 2022-10-31 14:12 | disposition home or self-care (01) | LOC: SPT 14:12 | PROVIDERS: PCP Nurse Practitioner Family; Visit Provider Specialist | DX: Z46.89 Encounter for fitting and adjustment of other specified devices (principal); S62.336D Displaced fracture of neck of fifth metacarpal bone, right hand, subsequent encounter for fracture with routine healing; X58.XXXD Exposure to other specified factors, subsequent encounter | CPT/HCPCS: 97760; L3918 ==

== ENCOUNTER → 2022-11-07 09:01 | Outpatient (BNVA) | payer SELFPAY | PROVIDERS: PCP Nurse Practitioner Family; Visit Provider Specialist | DX: S62.331A Displaced fracture of neck of second metacarpal bone, left hand, initial encounter for closed fracture (principal); X58.XXXA Exposure to other specified factors, initial encounter | CPT/HCPCS: 73130 ==

== ENCOUNTER 2022-12-21 08:09 | Emergency (ER) | payer SELFPAY ==
[2022-12-21 08:28] VITALS: BP 112/81; PULSE 94; RESP 24; TEMP 36.7; O2SAT 97; BMI 27.9
--- NOTE | 2022-12-21 08:55 | W.ED.NAVMDI ---
HPI - Nausea/Vomiting/Diarrhea General: Chief complaint: Nausea/Vomiting/Diarrhea Stated complaint: nausea,chills,vomiting, Time Seen by Provider: 12/21/22 08:35 History of Present Illness: Patient is a 27-year-old female comes to the ED with nausea and vomiting. Symptoms started last night at around midnight. She woke up and felt very nauseous and then had multiple episodes of emesis for about an hour. She continued having dry heaves throughout the night and into the morning. Patient says she has never had vomiting like this before in the past. She felt completely normal yesterday and the last meal she had was at 4 PM yesterday. Denies any abdominal pain, fevers, bloody emesis, dysuria, blood in stool, hematuria or diarrhea. Last menstrual period was approximately 3 weeks ago. Patient does endorse being a marijuana user but says she does not use it daily. Associated nausea: Yes Associated symtoms: Reports nausea; Denies change in vision, chest pain, dysuria, fatigue, headache(s) or palpitations Review of Systems Const: Denies: fever(s), chills or fatigue Eyes: Denies: change in vision or eye discomfort ENMT: Denies: throat pain, odynophagia, nasal discharge or nasal congestion Card: Denies: chest pain, palpitations, edema, swelling of feet/ankles, dyspnea on exertion or orthopnea Resp: Denies: dyspnea, productive cough or non-productive cough GI: Reports: nausea and vomiting; Denies: abdominal pain, diarrhea, constipation or hematochezia : Denies: flank pain, dysuria or hematuria Musc: Denies: neck pain, back pain or extremity swelling Skin/Breast: Denies: rash or new lesions Neuro: Denies: headache(s), numbness in extremities or weakness in extremities PFS ED PFSH: Medical History (Updated 12/21/22 @ 10:13 by FRANCISCO Hills) No pertinent family history Surgical History No significant past surgical history Social History Smoking and tobacco status: never smoked Second hand smoke exposure: No Smoking risk assessment/counseling performed?: No Alcohol intake: never Desire information about alcohol rehabilitation?: No Counseling given: No Substance/Drug Use: never Desire information about substance/drug rehabilitation?: No Counseling given: No Adopted: Yes Caregiver/support person: No Lives independently: Yes Physical Exam Const: COMMON NORMALS: no acute distress, patient oriented x3, healthy appearing and alert HENMT: COMMON NORMALS: normocephalic HEAD & SCALP: normocephalic MOUTH: Normal oral and palatal mucosa present THROAT: posterior oropharynx normal and uvula midline Neck/C-Spine: COMMON NORMALS: supple GENERAL: Yes normal visual inspection Resp: COMMON NORMALS: normal respiratory effort, No retractions, No use of accessory muscles and clear to auscultation bilaterally AUSCULTATION: clear to auscultation bilaterally Cardio: COMMON NORMALS: regular rate, regular rhythm, S1 normal heart sound present, S2 normal heart sound present, No gallops present (Cardio), No clicks present (Cardio), No murmurs present (Cardio) and Peripheral pulses 2+ throughout RATE: regular rate RHYTHM: regular rhythm HEART SOUNDS: S1 normal heart sound present and S2 normal heart sound present PERIPHERAL PULSES: Peripheral pulses 2+ throughout GI: COMMON NORMALS: Normal to inspection, nondistended, normoactive bowel sounds present, Soft to palpation, non-tender and no masses PALPATION: Yes Soft to palpation : COMMON NORMALS: Yes no CVA tenderness BLADDER/KIDNEY EXAM: Yes no CVA tenderness Back/Pelvis: COMMON NORMALS: no CVA tenderness Extremity: COMMON NORMALS: normal to inspection Neuro: COMMON NORMALS: patient oriented x3 SENSORIUM/ORIENTATION: Yes alert GAIT: Yes Normal gait present Skin: GENERAL SKIN EXAM: dry skin Course Vital Signs: Vital signs: Vital Signs Temperature 98.0 F 12/21/22 08:28 Pulse Rate 94 12/21/22 08:28 Respiratory Rate 24 H 12/21/22 08:28 Blood Pressure 112/81 12/21/22 08:28 Pulse Oximetry 97 12/21/22 08:28 Oxygen Delivery Me thod Room Air 12/21/22 08:28 MDM - Nausea/Vomiting/Diarrhea Medical Decision Making Patient is a 27-year-old female comes to the ED with nausea and vomiting. Symptoms started last night at around midnight. She woke up and felt very nauseous and then had multiple episodes of emesis for about an hour. She continued having dry heaves throughout the night and into the morning. Patient says she has never had vomiting like this before in the past. She felt completely normal yesterday and the last meal she had was at 4 PM yesterday. Denies any abdominal pain, fevers, bloody emesis, dysuria, blood in stool, hematuria or diarrhea. Last menstrual period was approximately 3 weeks ago. Patient does endorse being a marijuana user but says she does not use it daily. Vital stable. Patient appears healthy nontoxic in no acute distress or pain. She has no abdominal tenderness to exam. Rest of exam is benign. White blood cell count of 12.7 but the rest of CBC, CMP, lipase and UA were all unremarkable. She was given a liter of IV fluids and nausea meds and her symptoms resolved. She was able to tolerate p.o. fluids without any episodes of emesis. She was stable for discharge home and diagnosed with cyclic vomiting syndrome and sent home with a prescription for Zofran. Told to follow-up with her PCP within the next week for reevaluation. Clear liquid diet for the next 12 to 24 hours then advance diet as tolerated. Return to ED precautions given. Patient understood and agreed with plan. Lab Data I reviewed the patient's lab results. 12/21/22 08:57 12/21/22 08:57 Laboratory Results WBC 12.7 10^3/uL (4.0-10.0) H 12/21/22 08:57 RBC 4.87 10^6/uL (4.1-5.3) 12/21/22 08:57 Hgb 14.4 g/dL (11.5-15.3) 12/21/22 08:57 Hct 43.8 % (37.0-47.0) 12/21/22 08:57 MCV 89.9 fl (81-99) 12/21/22 08:57 MCH 29.6 pg (28.0-34.0) 12/21/22 08:57 MCHC 32.9 g/dL (30.0-36.0) 12/21/22 08:57 RDW 13.0 % (12.1-15.1) 12/21/22 08:57 Plt Count 220 10^3/cmm (130-400) 12/21/22 08:57 MPV 12.5 fL (7.4-10.4) H 12/21/22 08:57 Neut % (Auto) 85.2 % 12/21/22 08:57 Lymph % (Auto) 8.6 % 12/21/22 08:57 [place] % (Auto) 5.4 % 12/21/22 08:57 Eos % (Auto) 0.1 % 12/21/22 08:57 Baso % (Auto) 0.4 % 12/21/22 08:57 Neut # (Auto) 10.78 10^3/uL (1.8-7.7) H 12/21/22 08:57 Lymph # (Auto) 1.1 10^3/uL (0.8-4.8) 12/21/22 08:57 [place] # (Auto) 0.7 10^3/uL (0.2-0.9) 12/21/22 08:57 Eos # (Auto) 0.0 10^3/uL (0.0-0.8) 12/21/22 08:57 Baso # (Auto) 0.1 10^3/uL (0.0-0.1) 12/21/22 08:57 Nucleated RBC % (auto) 0 % 12/21/22 08:57 Nucleated RBCs # 0.0 /100WBC 12/21/22 08:57 Sodium 139 mmol/L (136-145) 12/21/22 08:57 Potassium 4.0 mmol/L (3.5-5.1) 12/21/22 08:57 Chloride 100 mmol/L (98-107) 12/21/22 08:57 Carbon Dioxide 24 mmol/L (22-29) 12/21/22 08:57 Anion Gap 19.0 (5-19) 12/21/22 08:57 BUN 13 mg/dL (6-20) 12/21/22 08:57 Creatinine 0.7 mg/dL (0.5-0.9) 12/21/22 08:57 GFR Calculation 98.9 mL/min (90-130) 12/21/22 08:57 Glucose 105 mg/dL (65-115) 12/21/22 08:57 Calculated Osmolality 288 mOsm/kg (285-295) 12/21/22 08:57 Calcium 10.0 mg/dL (8.5-10.5) 12/21/22 08:57 Total Bilirubin 0.4 mg/dL (0.15-1.2) 12/21/22 08:57 AST 32 U/L (0-32) 12/21/22 08:57 ALT 48 U/L (0-33) H 12/21/22 08:57 Alkaline Phosphatase 116 U/L (35-105) H 12/21/22 08:57 Total Protein 9.1 g/dL (6.6-8.7) H 12/21/22 08:57 Albumin 5.4 g/dL (3.5-5.2) H 12/21/22 08:57 Globulin 3.7 g/dL (1.3-4.6) 12/21/22 08:57 Lipase 21 U/L (13-60) 12/21/22 08:57 HCG, Qual Negative (Negative) 12/21/22 08:57 Urine Color Yellow (Yellow) 12/21/22 09:35 Urine Appearance Clear (CLEAR) 12/21/22 09:35 Urine pH 9 (5-7) H 12/21/22 09:35 Ur Specific [place] 1.015 (1.005-1.030) 12/21/22 09:35 Urine Protein Neg (Negative) 12/21/22 09:35 Urine Glucose (UA) Norm (Normal) 12/21/22 09:35 Urine Ketones 2+ (Negative) H 12/21/22 09:35 Urine Blood Neg (Negative) 12/21/22 09:35 Urine Nitrate Negative (Negative) 12/21/22 09:35 Urine Bilirubin Neg (Negative) 12/21/22 09:35 Prot Sulfosalicylic Acd Negative (Negative) 12/21/22 09:35 Urine Urobilinogen Norm mg/dL (Negative) 12/21/22 09:35 Ur Leukocyte Esterase Negative (Negative) 12/21/22 09:35 Discharge Plan Discharge Patient Disposition: Home Clinical Impression: Cyclic vomiting syndrome Condition: Stable Prescriptions: New ondansetron 4 mg tablet,disintegrating 4 mg PO Q8H PRN (Reason: nausea and vomiting) Qty: 15 0RF No Action (DME) [place] Splint See Rx Instructions .Route .MEDSUPPLY Qty: 1 0RF Rx Instructions: As directed Discharge Orders: Discharge ED (Routine); Ordered 12/21/22 Ordered By: Gianfranco Matthews Referrals: Capri Watts FNP-C [Primary Care Provider] - Discharge Diet: Advance as tolerated and Clear Liquid Discharge Activity: Increase activity as tolerated Patient Instructions: Cyclic Vomiting Syndrome (ED) Activity Restrictions/Additional Instructions: Follow-up with medical provider as directed in the next 5 to 7 days for reevaluation. Clear liquid diet for the next 12 to 24 hours and slowly advance diet as tolerated. Drink plenty of fluids and stay hydrated. Take medications as prescribed. Return to the ER or your medical provider if condition worsens. Please read and understand discharge instructions. Thank you for choosing [facility] for your healthcare needs today. Please realize this is an emergency room and that we are providing you with a medical screening exam and this may not be complete and all inclusive of all the testing and or work up that you may need to determine your ailment or severity of your illness. It is very important that you follow up as instructed or that you return to the Emergency Department should you have concerns or if your condition changes or worsens in any way. Coding Level of Care Code ED Orthopedic Shoe Maker for Celio Guardado
[2022-12-21] MEDS: sodium chloride 0.9% 1,000 ML 999 ML IV (09:18)
[2022-12-21] MEDS: metoclopramide 5 mg/mL SDV 2 mL 10 MG IVP (09:18)
[2022-12-21 09:21] LABS: Basophils # 0.1 10^3/uL (0.0-0.1); Basophils % 0.4 %; Eosinophils % 0.1 %; Hematocrit 43.8 % (37.0-47.0); Hemoglobin 14.4 g/dL (11.5-15.3); Lymphocytes # 1.1 10^3/uL (0.8-4.8); Lymphocytes % 8.6 %; Mean Corpuscular HGB Conc 32.9 g/dL (30.0-36.0); Mean Corpuscular Hemoglobin 29.6 pg (28.0-34.0); Mean Corpuscular Volume 89.9 fl (81-99); Mean Platelet Volume 12.5 fL (7.4-10.4); Monocytes # 0.7 10^3/uL (0.2-0.9); Monocytes % 5.4 %; Neutrophils # 10.78 10^3/uL (1.8-7.7); Neutrophils % 85.2 %; Nucleated Red Blood Cells % 0 %; Platelet Count 220 10^3/cmm (130-400); Red Blood Count 4.87 10^6/uL (4.1-5.3); White Blood Count 12.7 10^3/uL (4.0-10.0)
[2022-12-21 09:28] LABS: HCG, Serum Qual Negative (Negative)
[2022-12-21 09:34] LABS: Alanine Aminotransferase 48 U/L (0-33); Albumin Level 5.4 g/dL (3.5-5.2); Alkaline Phosphatase 116 U/L (35-105); Aspartate Amino Transferase 32 U/L (0-32); Blood Urea Nitrogen 13 mg/dL (6-20); Carbon Dioxide 24 mmol/L (22-29); Chloride 100 mmol/L (98-107); Globulin 3.7 g/dL (1.3-4.6); Glomerular Filtration Rate 98.9 mL/min (90-130); Glucose 105 mg/dL (65-115); Lipase 21 U/L (13-60); Osmolality Calculated 288 mOsm/kg (285-295); Sodium 139 mmol/L (136-145); Total Bilirubin 0.4 mg/dL (0.15-1.2); Total Protein 9.1 g/dL (6.6-8.7)
[2022-12-21 10:25] LABS: Add Urine Microscopic? NO; Charge for UA Resulting for Rev
[2022-12-21 10:42] LABS: Bilirubin Urine Neg (Negative); Blood Urine Neg (Negative); Glucose Urine UA Norm (Normal); Ketones Urine 2+ (Negative); Nitrate Urine Negative (Negative); Protein Urine Neg (Negative); Specific Gravity, Urine 1.015 (1.005-1.030); Urine Appearance Clear (CLEAR); Urine Color Yellow (Yellow); Urobilinogen Urine Norm (Negative); pH Urine 9 (5-7)
[2022-12-21 10:43] LABS: Leukocyte Esterase Urine Negative (Negative); Sulfosalicylic Acid Urine Negative (Negative)
== END 2022-12-21 11:05 | disposition home or self-care (01) ==
PROVIDERS: Emergency Provider Physician Assistant; PCP Nurse Practitioner Family
DX: R11.15 Cyclical vomiting syndrome unrelated to migraine (principal)
CPT/HCPCS: 80053; 81003; 83690; 84703; 85025; 96361; 96374; 99284; J2765; J7030

== ENCOUNTER 2023-09-05 09:18 | Emergency (ER) | payer SELFPAY ==
[2023-09-05 10:12] VITALS: BP 150/109; PULSE 88; RESP 18; TEMP 36.4; O2SAT 100; BMI 25.9
--- NOTE | 2023-09-05 10:54 | ED_ITS ---
HPI - Skin/Abscess/Foreign Bdy 2 General: Chief complaint: Skin/Abscess/Foreign Body Stated complaint: left leg pain Time Seen by Provider: 09/05/23 09:30 Source: patient Mode of arrival: ambulatory Limitations: no limitations History of Present Illness: Patient is a 28-year-old female presents to ED today with concern about possible spider bite to her left lower leg. She states on Friday she noticed a whelp to the area and thought she possibly got bit by something. She states since then she has noticed surrounding redness and induration. She states she did sleep somewhere where another individual had gotten bit by a brown recluse. She has not noticed any drainage from the area. No fevers. Patient states she normally does have significant localized reactions to insect bites. MD complaint: insect bite/sting Onset (ago): day(s) Tetanus up to date: yes Location: LLE Severity: mild Quality: burning Pain Consistency: constant Relieving factors: none Exacerbating factors: none Context: none Associated symptoms: Reports no associated symptoms; Deny chills or fever(s) Treatments prior to arrival: other (outlined erythema ) Review of Systems 2 Const: Denies: fever(s), chills or body aches Musc: Reports: extremity pain (L LE) Skin/Breast: Reports: new lesions (L LE) Neuro: Denies: numbness in extremities or sensory changes PFSH ED 2 PFSH: Medical History No pertinent family history Surgical History No significant past surgical history Social History Smoking and tobacco/nicotine status: never used tobacco/nicotine Second hand smoke exposure: No Alcohol intake: never Substance/Drug Use: never Adopted: Yes Caregiver/support person: No Lives independently: Yes Physical Exam 2 Const: COMMON NORMALS: no acute distress, average body habitus, patient oriented x3, no limitations, healthy appearing, alert and well nourished Extremity: EXTREMITY IMAGE (BACK): 1. erythema/induration; no fluctuance or drainage noted; central raw appearing area; no ecchymosis or hemorrhage noted Neuro: COMMON NORMALS: patient oriented x3, moves all extremities, no focal motor deficits and no sensory deficits noted SENSORIUM/ORIENTATION: Yes alert Skin: NARRATIVE SKIN EXAM: see above LESIONS: lesion noted (L LE) Course 2 Vital Signs: Vital signs: Vital Signs Temperature 97.6 F 09/05/23 10:12 Pulse Rate 88 09/05/23 10:12 Respiratory Rate 18 09/05/23 10:12 Blood Pressure 150/109 09/05/23 10:12 Pulse Oximetry 100 09/05/23 10:12 Oxygen Delivery Me thod Room Air 09/05/23 10:12 MDM - Skin/Abscess/Foreign Bdy Medicial Decision Making Patient here with insect/spider bite. DDx includes developing cellulitis/abscess versus localized reaction. She does feel like redness has continued to spread and has multiple rings of erythema marked. Will place on Bactrim. No abscess amenable to I&D at this time. Return ED precautions given. Medical Records I reviewed the patient's medical records. No radiology studies performed this visit Discharge Plan Discharge Patient Disposition: Home Clinical Impression: Insect bite of left lower leg with infection Qualifiers: Encounter type: initial encounter Qualified Code(s): S80.862A - Insect bite (nonvenomous), left lower leg, initial encounter Condition: Stable Prescriptions: New Bactrim DS 800-160 mg tablet 1 tab PO BID 7 Days Qty: 14 0RF No Action (DME) [place] Splint See Rx Instructions .Route .MEDSUPPLY Qty: 1 0RF Rx Instructions: As directed ondansetron 4 mg tablet,disintegrating 4 mg PO Q8H PRN (Reason: nausea and vomiting) Qty: 15 0RF Discharge Orders: Discharge ED (Routine); Ordered 09/05/23 Ordered By: Franca Stuart Referrals: Capri Watts FNP-C [Primary Care Provider] - Activity Restrictions/Additional Instructions: Fill your antibiotics and start them immediately. If you feel like redness and swelling is continue to progress despite you being on antibiotics for 48 hours you need to seek medical re-evaluation. You may seek medical re-evaluation sooner if you notice significant worsening at any time. Coding Level of Care Code ED [employer] Area Supervisor for Celio Guardado
[2023-09-05 11:10] VITALS: PULSE 81; O2SAT 98
== END 2023-09-05 11:11 | disposition home or self-care (01) ==
PROVIDERS: Emergency Provider Physician Assistant; PCP Nurse Practitioner Family
DX: S80.862A Insect bite (nonvenomous), left lower leg, initial encounter (principal); W57.XXXA Bitten or stung by nonvenomous insect and other nonvenomous arthropods, initial encounter
CPT/HCPCS: 99283

== ENCOUNTER 2025-03-09 10:22 | Emergency (ER) | payer MEDICAID, SELFPAY ==
[2025-03-09] VITALS (9 sets, daily range): BP systolic 152–184; BP diastolic 106–115; PULSE 84–97; RESP 17–18; TEMP 36.7; O2SAT 98–100; BMI 25.8
[2025-03-09 10:50] LABS: Hematocrit 38.4 % (36-47); Hemoglobin 12.80 g/dL (11.27-16.99); Mean Corpuscular HGB Conc 33.3 g/dL (30-55); Mean Corpuscular Hemoglobin 30.8 pg (27-33); Mean Corpuscular Volume 92.3 fl (85-98); Nucleated Red Blood Cells % 0 %; Platelet Count 235 10^3/cmm (157-399); Red Blood Count 4.16 10^6/uL (3.85-5.65); White Blood Count 8.57 10^3/uL (3.29-11.43)
[2025-03-09 11:10] LABS: HCG, Serum Qual Negative (Negative)
[2025-03-09 11:12] LABS: Alanine Aminotransferase 23 U/L (0-33); Albumin Level 4.5 g/dL (3.5-5.2); Alkaline Phosphatase 86 U/L (35-105); Anion Gap 14.9 (5-19); Aspartate Amino Transferase 16 U/L (0-32); Blood Urea Nitrogen 11 mg/dL (6-20); Calcium 9.1 mg/dL (8.5-10.5); Carbon Dioxide 26 mmol/L (22-29); Chloride 102 mmol/L (98-107); Creatinine Clr Calc Pharmacy 118.7722; Globulin 3.1 g/dL (1.3-4.6); Glucose 116 mg/dL (65-115); Osmolality Calculated 288 mOsm/kg (285-295); Potassium 3.9 mmol/L (3.5-5.1); Sodium 139 mmol/L (136-145); Total Protein 7.6 g/dL (6.6-8.7)
--- NOTE | 2025-03-09 11:20 | US_ITS ---
WS: [id number] US pelvis lmt w transvag HISTORY: pelvic pain COMPARISON: None available. Uterus: 7.4 cm x 3.4 cm x 3.7 cm. Normal size anteverted uterus. No fibroid or mass. Endometrium: 0.7 cm. Normal. Right ovary: 2.3 cm x 2.3 cm x 1.9 cm. Normal size and vascularity, no cystic or solid masses. Left ovary: LEFT ovary is not identified. No adnexal mass. No free fluid in the cul-de-sac. US/US pelvis lmt w transvag IMPRESSION: 1. Normal uterus and endometrium. 2. Normal RIGHT ovary. 3. LEFT ovary not identified. 4. No free fluid.
[2025-03-09 11:27] LABS: Glucose Urine UA Negative (Normal); Nitrate Urine Negative (Negative); Specific Gravity, Urine 1.015 (1.005-1.030)
[2025-03-09 11:30] LABS: Add Urine Microscopic? YES
--- NOTE | 2025-03-09 11:42 | W.ED.ABDPA2 ---
HPI - Abdominal Pain General: Chief Complaint: Abdominal Pain Stated Complaint: lower abd pain Time Seen by Provider: 03/09/25 10:26 History of Present Illness: 29-year-old female presents emergency room with right lower quadrant abdominal pain she had this off and on for a week. It is very positional. No fever sweats or chills no nausea or vomiting she has a problem with ovarian cysts in the past. She denies any medic easy melena hematemesis cough cramps no dysuria urgency or frequency or hematuria. Associated Symptoms: Denies chills, dysuria and fever(s) Related Data Previous Rx's ?Medication ?Instructions ?Recorded diclofenac sodium 75 mg 75 mg PO Q12H PRN pain #20 tabs 03/09/25 tablet,delayed release promethazine 25 mg tablet 25 mg PO Q6H PRN nausea and 03/09/25 vomiting #20 tabs Allergies Allergy/AdvReac Type Severity Reaction Status Date / Time amoxicillin Allergy ADR-Migrain Verified 12/21/22 08:33 e Review of Systems Const: Denies: fever(s) or chills Card: Denies: chest pain Resp: Denies: dyspnea GI: Denies: abdominal pain : Denies: dysuria, urinary frequency or urinary urgency Musc: Denies: neck pain or back pain Skin/Breast: Denies: rash PFSH ED PFSH: Medical History No pertinent family history Surgical History No significant past surgical history Social History Smoking and tobacco/nicotine status: never used tobacco/nicotine Second hand smoke exposure: No Alcohol intake: never Substance/Drug Use: never Adopted: Yes Caregiver/support person: No Lives independently: Yes Physical Exam Const: COMMON NORMALS: no acute distress GENERAL APPEARANCE: cooperative and comfortable ORIENTATION/CONSCIOUSNESS: Yes awake, Yes oriented to person, Yes oriented to place and Yes oriented to time HENMT: COMMON NORMALS: normocephalic, atraumatic and hearing grossly normal bilaterally HEAD & SCALP: normocephalic and atraumatic Resp: COMMON NORMALS: normal respiratory effort, No retractions, No use of accessory muscles and clear to auscultation bilaterally AUSCULTATION: clear to auscultation bilaterally Cardio: COMMON NORMALS: regular rate, regular rhythm and No murmurs present (Cardio) RATE: regular rate RHYTHM: regular rhythm GI: COMMON NORMALS: Soft to palpation and No hepatosplenomegaly present AUSCULTATION: Yes normoactive bowel sounds PALPATION: Yes Soft to palpation, No Tenderness to palpation present (GI), No Guarding due to palpation present (GI) and Yes No hepatosplenomegaly present Extremity: COMMON NORMALS: normal to inspection, capillary refill normal, no clubbing, cyanosis or edema, no calf tenderness and no pedal edema Neuro: SENSORIUM/ORIENTATION: Yes oriented to person, Yes oriented to place and Yes oriented to time Skin: COMMON NORMALS: no rashes or lesions noted GENERAL SKIN EXAM: no rashes or lesions noted Course Vital Signs: Vital signs: Vital Signs Temperature 98.1 F 03/09/25 10:36 Pulse Rate 84 03/09/25 14:57 Respiratory Rate 17 03/09/25 14:57 Blood Pressure 164/115 03/09/25 14:57 Pulse Oximetry 98 03/09/25 14:57 Oxygen Delivery Me thod Room Air 03/09/25 14:22 MDM - Abdominal Pain Medical Decision Making CBC normal on exam there is no pain at McBurney's point. She had an ultrasound of her appendix a week ago at that time it was normal she does not have any worsening exam findings at this time. Her pain is reproducible with palpation along the ilioinguinal ligament. Last there is no evidence of a femoral ring hernia or inguinal hernia at this time. Suspect this is musculoskeletal based on the location of the pain and the reproducibility with palpation we will discharge her home with anti-inflammatories. Patient very frustrated by lack of findings on imaging and labs. Discussed with her the different things we had considered and ruled out. There is no specific testing for a muscle strain and can be done. Lab Data 03/09/25 10:43 03/09/25 10:43 Labs/Radiology: Radiology Impressions Pelvic/Transvag US 03/09/25 11:20 IMPRESSION: 1. Normal uterus and endometrium. 2. Normal RIGHT ovary. 3. LEFT ovary not identified. 4. No free fluid. Laboratory Results WBC 8.57 10^3/uL (3.29-11.43) 03/09/25 10:43 RBC 4.16 10^6/uL (3.85-5.65) 03/09/25 10:43 Hgb 12.80 g/dL (11.27-16.99) 03/09/25 10:43 Hct 38.4 % (36-47) 03/09/25 10:43 MCV 92.3 fl (85-98) 03/09/25 10:43 MCH 30.8 pg (27-33) 03/09/25 10:43 MCHC 33.3 g/dL (30-55) 03/09/25 10:43 RDW 13.2 % (12.1-15.1) 03/09/25 10:43 Plt Count 235 10^3/cmm (157-399) 03/09/25 10:43 MPV 11.4 fL (7.4-10.4) H 03/09/25 10:43 Neut % (Auto) 68.4 % 03/09/25 10:43 Lymph % (Auto) 22.2 % 03/09/25 10:43 Sumner % (Auto) 7.4 % 03/09/25 10:43 Eos % (Auto) 1.1 % 03/09/25 10:43 Baso % (Auto) 0.4 % 03/09/25 10:43 Neut # (Auto) 5.88 10^3/uL (1.8-7.7) 03/09/25 10:43 Lymph # (Auto) 1.9 10^3/uL (0.8-4.8) 03/09/25 10:43 Sumner # (Auto) 0.6 10^3/uL (0.2-0.9) 03/09/25 10:43 Eos # (Auto) 0.1 10^3/uL (0.0-0.8) 03/09/25 10:43 Baso # (Auto) 0.0 10^3/uL (0.0-0.1) 03/09/25 10:43 Nucleated RBC % (auto) 0 % 03/09/25 10:43 Nucleated RBCs # 0.0 /100WBC 03/09/25 10:43 Sodium 139 mmol/L (136-145) 03/09/25 10:43 Potassium 3.9 mmol/L (3.5-5.1) 03/09/25 10:43 Chloride 102 mmol/L (98-107) 03/09/25 10:43 Carbon Dioxide 26 mmol/L (22-29) 03/09/25 10:43 Anion Gap 14.9 (5-19) 03/09/25 10:43 BUN 11 mg/dL (6-20) 03/09/25 10:43 Creatinine 0.7 mg/dL (0.5-0.9) 03/09/25 10:43 GFR Calculation 97.6 mL/min (90-130) 03/09/25 10:43 Glucose 116 mg/dL (65-115) H 03/09/25 10:43 Calculated Osmolality 288 mOsm/kg (285-295) 03/09/25 10:43 Calcium 9.1 mg/dL (8.5-10.5) 03/09/25 10:43 Total Bilirubin 0.3 mg/dL (0.15-1.2) 03/09/25 10:43 AST 16 U/L (0-32) 03/09/25 10:43 ALT 23 U/L (0-33) 03/09/25 10:43 Alkaline Phosphatase 86 U/L (35-105) 03/09/25 10:43 Total Protein 7.6 g/dL (6.6-8.7) 03/09/25 10:43 Albumin 4.5 g/dL (3.5-5.2) 03/09/25 10:43 Globulin 3.1 g/dL (1.3-4.6) 03/09/25 10:43 HCG, Qual Negative (Negative) 03/09/25 10:43 Urine Color Yellow (Yellow) 03/09/25 11:09 Urine Appearance Clear (CLEAR) 03/09/25 11:09 Urine pH 6.5 (5-7) 03/09/25 11:09 Ur Specific Ransom 1.015 (1.005-1.030) 03/09/25 11:09 Urine Protein Negative (Negative) 03/09/25 11:09 Urine Glucose (UA) Negative (Normal) 03/09/25 11:09 Urine Ketones Negative (Negative) 03/09/25 11:09 Urine Blood Negative (Negative) 03/09/25 11:09 Urine Nitrate Negative (Negative) 03/09/25 11:09 Urine Bilirubin Negative (Negative) 03/09/25 11:09 Urine Urobilinogen 0.2 mg/dL (Negative) 03/09/25 11:09 Ur Leukocyte Esterase Trace (Negative) A 03/09/25 11:09 Urine RBC 0-2 /hpf (0-2) 03/09/25 11:09 Urine WBC 6-10 /hpf (0-5) 03/09/25 11:09 Ur Squamous Epith Cells 11-20 /hpf (0-5) H 03/09/25 11:09 Amorphous Sediment Not Reportable 03/09/25 11:09 Urine Bacteria 1+ /hpf (NONE) H 03/09/25 11:09 Hyaline Casts 2.05 /lpf 03/09/25 11:09 All radiology interpretation(s) finalized by discharge Discharge Plan Discharge Patient Disposition: Home Clinical Impression: Ilio-inguinal strain, At risk for dissatisfaction with healthcare Condition: Stable Prescriptions: New diclofenac sodium 75 mg tablet,delayed release (DR/EC) 75 mg PO Q12H PRN (Reason: pain) Qty: 20 0RF promethazine 25 mg tablet 25 mg PO Q6H PRN (Reason: nausea and vomiting) Qty: 20 0RF Discharge Orders: Discharge ED (Routine); Ordered 03/09/25 Ordered By: Adin Perez Referrals: Capri Watts FNP-C [Primary Care Provider, Family Practice] Discharge Diet: Usual diet Discharge Activity: Limit activity as instructed Patient Instructions: Opioid Safety, Pain Management, Patient Portal & Julio Instructions Activity Restrictions/Additional Instructions: Thank you for choosing [facility] for your healthcare needs today. It is very important that you follow up as instructed or that you return to the Emergency Department should you have concerns or if your condition changes or worsens in any way. Emergency department visits are focused on emergent conditions, in some cases you may require further evaluation on an outpatient basis. You were seen in the emergency room with complaints of pain in the groin region. Your white count liver functions and kidney functions and urine were all normal. We reviewed an ultrasound on your appendix that had not been done previously that was normal as well. Pelvic ultrasound done today did not show any signs of fluid in the pelvis the right ovary appears normal. Your pain is reproducible with movement and with palpation ending groin crease (ilioinguinal ligament area. On exam there was no sign of hernias in the ilioinguinal canal or in the femoral ring. Suspect that some of this is musculoskeletal. These can be difficult to treat there is no definitive testing to diagnoses other than a history and ruling out other potential causes. We did write you prescription for diclofenac. It also mention at times you get nauseous you are given a prescription for nausea medications. Will avoid strenuous activities and neck several days. Follow-up with your primary care doctor. (Please note that included in your discharge packet is information concerning opioid safety and pain management. This information is given to all patients were discharged from the ER regardless of their discharge diagnosis or the medicines they usually take or are prescribed.) Print Language: Chadian Coding Level of Care Code ED [employer] Division Manager for Celio Guardado
== END 2025-03-09 14:58 | disposition home or self-care (01) ==
PROVIDERS: Emergency Provider Family Medicine; PCP Nurse Practitioner Family
DX: S76.811A Strain of other specified muscles, fascia and tendons at thigh level, right thigh, initial encounter (principal); Z91.89 Other specified personal risk factors, not elsewhere classified; X58.XXXA Exposure to other specified factors, initial encounter
CPT/HCPCS: 36415; 76830; 76857; 80053; 81001; 84703; 85025; 96374; 99285; J1885